=== PATIENT | male | born 1975 | race Caucasian/White ===

== ENCOUNTER 2022-10-28 12:38 | Emergency (ER) | payer MEDICAID ==
[~2022-10-28] VITALS: Ht 188 cm; Wt 94.8 kg
[2022-10-28 13:31] VITALS: BP 141/78
[2022-10-28 13:31] LABS: Urine Bacteria FEW /hpf (None Seen); Urine Blood TRACE /uL (Negative); Urine Mucus FEW (None Seen); Urine Specific Gravity 1.035 (1.001-1.035); Urine WBC 8 /hpf (0 - 3)
[2022-10-28] MEDS ORDERED: CIPR-173 PO (14:25)
== END 2022-10-28 14:34 | disposition home or self-care (01) ==
LOC: ER 12:38
DX: N43.3 Hydrocele, unspecified (principal); N39.0 Urinary tract infection, site not specified; F17.210 Nicotine dependence, cigarettes, uncomplicated; Z79.899 Other long term (current) drug therapy
CPT/HCPCS: 76870; 81001

== ENCOUNTER 2024-09-20 17:05 | Emergency (ER) | payer MEDICAID ==
[~2024-09-20 17:05] MED LIST: CIPR-173 PO
== END 2024-09-20 17:31 | disposition left against medical advice (07) ==
LOC: ER 17:13
DX: Z00.00 Encounter for general adult medical examination without abnormal findings (principal); Z53.21 Procedure and treatment not carried out due to patient leaving prior to being seen by health care provider

== ENCOUNTER → 2025-02-11 | Outpatient (CLI) | payer MEDICAID ==
--- NOTE | 2025-02-12 10:13 | DVHSR ---
APPROVED REPORT EXAM: Two-dimensional and M-mode echocardiogram with Doppler and color Doppler. DIMENSIONS LVDd4.6 (3.8-5.7cm)LA (2D)3.7 (1.9-4.0cm)Aortic Root3.5 (2.0-3.7cm) LVDs3.9 (2.5-4.0cm)LA (MM) (1.9-4.0cm)Aortic Cusp Exc (1.5-2.0cm) EF (%) 35.0 (55-70%)Rt. Atrium4.1 (1.9-4.0cm)Asc. Aorta cm IVSd1.1 (0.7-1.1cm)RV (D) (1.8-2.4cm) PWd1.3 (0.7-1.1cm) Mitral Valve MitralMitral Stenosis E wave0.44m/sMV Mean GR.mmHg A wave0.57m/sMV Peak GR.mmHg E/A ratio0.82D MVAcm2 DECEL [id number] 1/2 [place] Aortic Valve Aortic ValveAortic Stenosis V10.80m/Radames Mean GR.3mmHg V21.06m/Radames Peak GR.4mmHg LVOT Diameter2.4 (1.8-2.4cm)Doppler AVA3.41cm2 LEFT VENTRICLE The Left Ventricle is mildly dilated. The Ejection Fraction is 35-45%. RIGHT VENTRICLE The right ventricle is normal size. ATRIA The left atrial size is normal. The right atrium size is normal. The interatrial septum is intact with no evidence for an atrial septal defect. MITRAL VALVE The mitral valve is normal in structure and function. There is no mitral valve regurgitation noted. PULMONIC VALVE The pulmonic valve is not well visualized. TRICUSPID VALVE The tricuspid valve is grossly normal. AORTIC VALVE The aortic valve opens well. No aortic regurgitation is present. GREAT VESSELS The aortic root is normal size. PERICARDIAL EFFUSION There is no pericardial effusion. Other Information Technically limited study due to body habitus. Conclusion EF 35%
== END | disposition home or self-care (01) ==
LOC: Rad HDHVI 12:14
PROVIDERS: ATTEND Internal Medicine Cardiovascular Disease
DX: I11.9 Hypertensive heart disease without heart failure (principal)
CPT/HCPCS: 93306

== ENCOUNTER 2025-03-20 12:52 | Outpatient (CLI) | payer MEDICAID ==
[~2025-03-20] VITALS: Ht 190.5 cm; Wt 83.5 kg
[2025-03-20] MEDS ORDERED: ADENOSINE 90 MG/30 ML INJ IV ONE (14:08)
[2025-03-20] MEDS ORDERED: ADENOSINE 70 MG in GIVE UN-DILUTED 0 ML IV ONE (15:45)
== END 2025-03-20 17:00 | disposition home or self-care (01) ==
LOC: Rad HDHVI 12:52
PROVIDERS: ATTEND Internal Medicine Cardiovascular Disease
DX: R00.0 Tachycardia, unspecified (principal); I10 Essential (primary) hypertension; Z13.6 Encounter for screening for cardiovascular disorders; F17.210 Nicotine dependence, cigarettes, uncomplicated
CPT/HCPCS: 78452; 93017; 93970; A9500; J0153